=== PATIENT | male | born 1970 | race African-American/Black ===

== ENCOUNTER 2016-11-21 22:41 | Inpatient (IN) ==
[2016-11-22] MEDS ORDERED: CEFTAROLINE 600 MG in SODIUM CHLORIDE 0.9% 100 ML IV STA (00:33)
[2016-11-22] MEDS ORDERED: CEFTAROLINE 600 MG VIAL IV ONE (00:43)
[2016-11-22] MEDS ORDERED: SODIUM CHLORIDE 0.9% 100 ML IV ONE (00:44)
[2016-11-22 01:13] LABS: Basophils % 0.3 % (0.0-0.8); Eosinophils # 0.1 10*3/uL (0.0-0.87); Eosinophils % 0.9 % (0.00-10.9); Hemoglobin 10.6 GM/DL (14.0-18.0); Immature Granulocytes % 0.4 %; Immature Granulocytes Absolute 0.03 #; Lymphocytes # 1.9 10*3/uL (1.4-4.0); Lymphocytes % 24.2 % (21.2-54.2); Mean Corpuscular HGB Conc 33.1 GM/DL (32-36); Mean Corpuscular Hemoglobin 29 PG (27-34); Mean Corpuscular Volume 86.5 FL (87-102); Mean Platelet Volume 9.4 FL (9.6-12.0); Monocytes % 12.6 % (1.7-12.7); Neutrophils # 4.8 10*3/uL (1.4-7.4); Neutrophils % 61.6 % (38.7-73.9); Platelet Count 324 T/CUMM (130-400); Red Cell Distribution Width 14.7 % (9.3-17.3); White Blood Count 7.9 T/CUMM (4-12)
[2016-11-22 01:29] LABS: Alanine Aminotransferase 22 U/L (16-61); Albumin 2.8 G/DL (3.4-5.0); Alkaline Phosphatase 80 U/L (45-117); Aspartate Amino Transferase 23 U/L (0-37); Blood Urea Nitrogen 8 MG/DL (7-18); Calcium 8.9 MG/DL (8.5-10.1); Glucose 109 MG/DL (74-106); Magnesium 2.5 MG/DL (1.8-2.4); Potassium 3.8 MMOL/L (3.5-5.1); Sodium 136 MMOL/L (136-145); Total Protein 7.6 G/DL (6.4-8.3)
--- NOTE | 2016-11-22 02:01 | Emergency Department Note ---
ICallum Emily, am scribing for, and in the presence of, Jakob Redd MD 00: 30. Tramaine Timmons Charles R, MD, personally performed the services described in this documentation, ascribed by Leticia Nolen in my presence, and it is both accurate and complete . Arrival - Arrival Chief Complaint: Extremity Problem Stated Complaint: both feet are swollen ED Nursing Triage Note: Patient complains of swelling to bilateral feet. Patient states that he fell last Saturday and twisted his feet inside of the rubber boots that he was wearing and obtained blisters to feet. Further states that bisters bursted and feet began to swell. Large sores noted to bilatereal feet upon triage with non-pitting edema noted. Mode of Arrival: Wheelchair Limitations: No Limitations Source: Patient Time Seen by Provider: 11/22/16 00:18 - History of Present Illness HPI Narrative: Pt is a 46 y/o male who came to ED with c/o open wounds to bilateral lower extremities that started Saturday last week. Pt notes it started out as a couple of blisters noticed on Saturday, he popped them, and two days later they became bigger. Pt states now they feel tight, swollen, and are painful. Pt admits to smoking tobacco and ETOH usage but denies drug use. Pt denies DM or recent fevers. Onset (ago): week(s) Consistency: constant Severity: moderate Severity scale (1-10): 5 Quality: aching Allergies/Adverse Reactions: Allergies Allergy/AdvReac Type Severity Reaction Status Date / Time No Known Allergies Allergy Unverified 11/21/16 23:03 Home Medications: Home Medications Medication Instructions Recorded Confirmed Type No Known Home Medications [No 11/21/16 11/21/16 History Known Home Medications] Review of System - Review of System 12 point system: reviewed and no additional remarkable complaints except as stated - Review of System Constitutional: Absent: fever Respiratory: Absent: respiratory distress Cardiovascular: Absent: chest pain Gastrointestinal: Absent: abdominal pain, nausea, vomiting Musculoskeletal: Present: leg pain (several open wounds on bilateral lower legs that are painful, swollen and tight). Absent: arm pain Skin: Absent: rash Neurological: Absent: headache ( ) Medical,Surgical,& Family Hx - Family History Family History: noncontributory - Social History Smoking Status: Current every day smoker Frequency of Alcohol Use: Occasionally Type of Drug Use: Marijuana Marital Status: Single Lives With:: Alone Functional capacity: independent ambulation Exam Vital Signs: Vital Signs Temperature 98.5 F 11/21/16 23:56 Pulse Rate 105 H 11/21/16 23:56 Respiratory Rate 18 11/21/16 23:56 Blood Pressure 126/84 11/21/16 23:56 O2 Sat by Pulse Oximetry 100 11/21/16 23:04 - General General appearance: alert, in no apparent distress - Head Head exam: Present: atraumatic, normocephalic - Eye Eye exam: Present: PERRL, EOMI - ENT ENT exam: Present: mucous membranes moist. Absent: mucous membranes dry - Neck Neck exam: Present: full ROM, trachea midline - Chest Chest inspection: Present: symmetric chest wall rise - Respiratory Respiratory exam: Present: normal lung sounds bilaterally. Absent: respiratory distress - Cardiovascular Cardiovascular exam: Present: regular rate, normal rhythm, normal heart sounds - Extremities Exam Extremities exam: Present: full ROM, tenderness (multiple lesions to bilateral lower extremities that are non healing wounds with S-scars). Absent: pedal edema - Neurological Exam Neurological exam: Present: alert, oriented X3, CN II-XII intact. Absent: motor sensory deficit - Psychiatric Psychiatric exam: Present: normal affect, normal mood - Skin Skin exam: Present: warm, dry Course - Consultations Consultation #1: Dr. Corrigan will admit patient Time: 00:25 Results - Labs CBC & BMP: 11/22/16 00:32 11/22/16 Unknown Lab Results: I have reviewed the patients labs Labs: Laboratory Tests 11/22/16 11/22/16 00:32 Unknown WBC 7.9 RBC 3.70 L Hgb 10.6 L Hct 32.0 L MCV 86.5 L Plt Count 324 MPV 9.4 L [place] # (Auto) 1.0 H Sodium 136 Potassium 3.8 Chloride 100 Carbon Dioxide 30 Creatinine 1.10 GFR Calculation 92 Glucose 109 H Calculated Osmolality 270.0 L Magnesium 2.5 H AST 23 Albumin 2.8 L Globulin 4.8 H Albumin/Globulin Ratio 0.5 L Serum Alcohol < 15 L Disposition Clinical Impression: Cellulitis, Multiple nonhealing wounds bilateral low Case discussed with: patient, patient's family Disposition: Still a Patient Condition: Stable Time of Disposition: 02:01
[2016-11-22 02:14] LABS: Lymphocytes 34 % (20-55); Myelocytes 1 %; Segmented Neutrophils 54 % (50-85)
[2016-11-22 02:16] LABS: Platelet Estimate Normal; Total Cells Counted 100
[2016-11-22 02:23] LABS: Barbiturates Screen,Urine Negative (Negative); Benzodiazepines Screen,Urine Negative (Negative); Cannabinoid Screen,Urine Positive (Negative); Opiate Screen,Urine Negative (Negative); Phencyclidine Screen,Urine Negative (Negative)
[2016-11-22] MEDS ORDERED: ALBUTEROL/IPRATROPIUM 3 ML NEB RESP TX PRN (03:19)
[2016-11-22] MEDS ORDERED: ACETAMINOPHEN 325 MG TABLET PO PRN (03:19)
[2016-11-22] MEDS ORDERED: ONDANSETRON 4 MG/2 ML VIAL IV PRN (03:19)
[2016-11-22] MEDS: SODIUM CHLORIDE 0.9% 1,000 ML IV SCH ×2 (05:00→14:35)
[2016-11-22] MEDS: MORPHINE 2 MG/1 ML SYRINGE IV PRN ×3 (06:32→17:26)
[2016-11-22 08:00] LABS: Basophils % 0.2 % (0.0-0.8); Eosinophils # 0.1 10*3/uL (0.0-0.87); Eosinophils % 0.7 % (0.00-10.9); Hematocrit 30.2 VOL% (42.0-52.0); Hemoglobin 10.1 GM/DL (14.0-18.0); Immature Granulocytes % 0.5 %; Immature Granulocytes Absolute 0.04 #; Lymphocytes # 2.8 10*3/uL (1.4-4.0); Lymphocytes % 31.4 % (21.2-54.2); Mean Corpuscular HGB Conc 33.4 GM/DL (32-36); Mean Corpuscular Hemoglobin 29 PG (27-34); Mean Corpuscular Volume 86.5 FL (87-102); Mean Platelet Volume 9.5 FL (9.6-12.0); Monocytes # 1.1 10*3/uL (0.11-0.8); Monocytes % 12.8 % (1.7-12.7); Neutrophils # 4.8 10*3/uL (1.4-7.4); Neutrophils % 54.4 % (38.7-73.9); Platelet Count 349 T/CUMM (130-400); Red Blood Count 3.49 MC/CUMM (3.8-5.5); Red Cell Distribution Width 14.8 % (9.3-17.3); White Blood Count 8.8 T/CUMM (4-12)
[2016-11-22 08:29] LABS: Hypochromasia 1+; Lymphocytes 33 % (20-55); Segmented Neutrophils 56 % (50-85); Total Cells Counted 100
[2016-11-22 08:30] LABS: Microcytosis 1+; Platelet Estimate Normal
[2016-11-22 08:34] LABS: Albumin 2.8 G/DL (3.4-5.0); Bilirubin,Total 0.4 MG/DL (0.2-1.0); Calcium 8.8 MG/DL (8.5-10.1); Magnesium 2.4 MG/DL (1.8-2.4); Osmolality,Calculated 270.8 MOS/KG (273-304); Potassium 4.1 MMOL/L (3.5-5.1); Total Protein 7.4 G/DL (6.4-8.3)
[2016-11-22] MEDS: PANTOPRAZOLE 40 MG TABLET PO SCH (08:37)
--- NOTE | 2016-11-22 08:54 | General Surg History&Physical ---
Assessment and Plan - Time spent with patient Time spent with patient: Less than 30 minutes (1) Cellulitis Status: Acute Assessment and plan: He appears to have bilateral cellulitis and ulceration of both of his lower extremities and feet. These are exquisitely tender. He has palpable pulses and had no history of claudication or limitation to his activity prior to this happening. I do not think that this is vascular in origin. I think that these are secondarily infected blistered areas secondary to local trauma. It is unclear if these eschars need debridement at this point. I am going to treat him initially with antibiotics but if he is not improving we may need to debride these areas in the operating room Current Visit: Yes Qualifiers: Site of cellulitis of extremity: lower extremity Laterality: left History of Present Illness Chief complaint: Ulcers on legs and feet History of present illness: Mr. Velez is a 46 year old male Who states that 9 days ago he was wearing rubber boots all day in the rain and developed blisters on his legs and feet inside the rubber boots. He eventually popped all of the blisters and was left with large ulcerated areas on both of his feet and legs. He has not had fever or chills but has had increasing pain and swelling in both of his lower legs and feet over the last 3 days. He does not know if he has had fever or chills. It hurts more when he walks and feels better if his legs are elevated. Home Medications Medication Instructions Recorded Confirmed Type No Known Home Medications [No 11/21/16 11/21/16 History Known Home Medications] Allergies Allergy/AdvReac Type Severity Reaction Status Date / Time No Known Allergies Allergy Unverified 11/21/16 23:03 Medical,Surgical,& Family Hx - Medical History Medical History: noncontributory - Surgical History Surgical History: noncontributory - Family History Family History: Reports;: Family Diabetes (father), Family Hypertension (mother) - Social History Smoking Status: Current every day smoker Frequency of Alcohol Use: Occasionally Type of Drug Use: Marijuana Exam - Constitutional Vitals: Period Temp Pulse Resp BP Sys/Elliott Pulse Ox Last 24 Hr 98.4 F-98.6 F 76-105 18-20 115-126/71-84 98-100 General appearance: no acute distress - Head Head exam: Present: normocephalic - Eye Eye exam: Absent: scleral icterus - Neck Neck exam: Present: trachea midline. Absent: tenderness - Respiratory Respiratory exam: Present: clear to auscultation bilaterally. Absent: accessory muscle use - Cardiovascular Cardiovascular exam: Present: RRR - GI/Abdominal GI/Abdominal exam: Present: soft. Absent: distended, guarding, tenderness, rebound - Neurological Exam Neurological exam: Present: alert, oriented X3. Absent: motor sensory deficit Speech: Present: normal - Skin Skin exam: Present: normal color - Constitutional Constitutional: Present: anorexia, fever(s) (Subjective). Absent: chills - Cardiovascular Cardiovascular: Absent: chest pain at rest, chest pain with activity - Respiratory Respiratory: Absent: cough, dyspnea, hemoptysis, dyspnea on exertion - Gastrointestinal Gastrointestinal: Absent: abdominal pain, hematemesis, hematochezia, nausea, vomiting, jaundice - Genitourinary Genitourinary: Absent: hematuria - Neurological Neurological: Absent: focal weakness, syncope - Endocrine Endocrine: Absent: polyuria Hematologic/Lymphatic: Absent: easy bleeding, easy bruising Quality Measures - VTE Contraindication to Mechanical VTE Prophylaxis: Trauma to Legs Results - Labs CBC & BMP: 11/22/16 07:32 11/22/16 Unknown Lab Results: I have reviewed the past 24 hour labs
[2016-11-22] MEDS: AMPICILLIN/SULBACTAM 3,000 MG in SODIUM CHLORIDE 0.9% 100 ML IV SCH ×3 (10:33→20:37)
[2016-11-22] MEDS: ENOXAPARIN 40 MG/0.4 ML SYRINGE SUBCUT SCH (11:56)
[2016-11-22] MEDS ORDERED: CEFTAROLINE 600 MG in SODIUM CHLORIDE 0.9% 100 ML IV SCH (12:00)
[2016-11-23] MEDS: MORPHINE 2 MG/1 ML SYRINGE IV PRN ×2 (00:18→10:22)
[2016-11-23] MEDS: SODIUM CHLORIDE 0.9% 1,000 ML IV SCH (03:00)
[2016-11-23] MEDS: AMPICILLIN/SULBACTAM 3,000 MG in SODIUM CHLORIDE 0.9% 100 ML IV SCH ×2 (03:00→10:16)
--- NOTE | 2016-11-23 08:35 | General Surgery Progress Note ---
Assessment and Plan (1) Cellulitis Status: Acute Assessment and plan: He appears to have bilateral cellulitis and ulceration of both of his lower extremities and feet. These are exquisitely tender. He has palpable pulses and had no history of claudication or limitation to his activity prior to this happening. I do not think that this is vascular in origin. I think that these are secondarily infected blistered areas secondary to local trauma. It is unclear if these eschars need debridement at this point. I am going to treat him initially with antibiotics but if he is not improving we may need to debride these areas in the operating room 11/23: This appears resolved. I think that he can be discharged home on antibiotics by mouth. I do not think that these eschars need debridement. I can follow him up in the office in 1 week Current Visit: Yes Qualifiers: Site of cellulitis of extremity: lower extremity Laterality: left Subjective Patient reports: Present: feels better, pain is less. Absent: fever Exam - Constitutional Vitals: Period Temp Pulse Resp BP Sys/Elliott Pulse Ox Last 24 Hr 97.7 F-98.3 F 74-99 18-20 111-133/68-86 96-99 General appearance: no acute distress - Respiratory Respiratory exam: Absent: accessory muscle use - Extremities Exam Extremities exam: Present: other (The tenderness and faint erythema are resolved the eschars are all dry). Absent: edema Results - Labs CBC & BMP: 11/22/16 07:32 11/22/16 Unknown Lab Results: I have reviewed the past 24 hour labs Quality Measures - VTE Contraindication to Mechanical VTE Prophylaxis: Trauma to Legs Specialty Discharge - Follow Up or Referrals Follow up with: Kael Corrigan III., MD [Physician] -
[2016-11-23] MEDS: PANTOPRAZOLE 40 MG TABLET PO SCH (10:14)
--- NOTE | 2016-11-23 11:20 | Discharge Summary ---
Hospital Course - Hospital Course Hospital Course: Patient is a 46-year-old gentleman admitted for cellulitis associated with wounds of bilateral lower extremities. The patient was treated with IV antibiotics to which the cellulitis responded well. No cultures were obtained as his wounds were not draining. No abscess formation noted or surgical indications identified. The patient had significant improvement in pain and cellulitis was ultimately discharged home in good condition with follow-up in the wound care center as well as with Dr. Corrigan. Wound care instructions to paint daily with Betadine in the interim were provided. No complications to note. - Time spent with patient Time with patient DS: Less than 30 minutes Diagnosis - Discharge Diagnosis (1) Substance abuse Status: Acute (2) Cellulitis Status: Acute Specialty Discharge - Follow Up or Referrals Follow up with: Kael Corrigan III., MD [Physician] - 12/04/16 1:00 pm Discharge Plan - Discharge Data Disposition: Disch To Home/Self Care Condition at Discharge: Stable Discharge Diet: advance to your usual diet Activity: other (Elevate bilateral lower extremities) Hygiene: may shower (Do not soak or submerge wounds.) Wound / Dressing Care Instructions: Patient may shower. Do not soak or submerge wounds. Clean daily with Betadine. Follow-up in wound care clinic as scheduled. Follow with Dr. Corrigan as scheduled. - Discharge Medications New Clindamycin Cap [Cleocin Cap] 300 mg PO Q8HR #24 capsule traMADol TAB [Ultram] 50 mg PO Q6H PRN #20 tablet PRN Reason: Pain - Follow Up or Referral Follow Up: Kael Corrigan III., MD [Physician] - 12/04/16 1:00 pm - Forms/Instructions Instructions: Cellulitis (DC), Cannabis Abuse (DC), Cocaine Abuse (DC) Additional Discharge Instructions: F/u wound care clinic as scheduled Exam - Constitutional Vitals: Period Temp Pulse Resp BP Sys/Elliott Pulse Ox Last 24 Hr 97.7 F-98.3 F 74-99 18-20 111-133/68-86 96-99 General appearance: no acute distress - Head Head exam: Present: atraumatic - Respiratory Respiratory exam: Present: clear to auscultation bilaterally - Cardiovascular Cardiovascular exam: Present: regular rate and rhythm - GI/Abdominal GI/Abdominal exam: Present: normal bowel sounds, soft. Absent: distended, tenderness - Extremities Exam Extremities exam: Present: other (Dry wounds of bilateral pretibial regions as well as on the dorsum of bilateral feet and medial aspect of the first MTP of the left foot with decreased cellulitis. No area of fluctuance or induration is noted. No purulence expressible. Nontender to palpation with no significant edema.). Absent: calf tenderness, edema - Neurological Exam Neurological exam: Present: alert, oriented X3 - Psychiatric Psychiatric exam: Present: normal affect, normal mood Discharge Results Procedures and tests throughout hospitalization: Pending Orders 11/22/16 01:20 Blood Culture Stat Labs on day of discharge: Preliminary micro results at discharge 11/22/16 01:20 Blood Culture - Preliminary Blood No growth at 1 day 11/22/16 01:13 Blood Culture - Preliminary Blood No growth at 1 day DS: Provider Date of admission: 11/22/16 02:01 Primary care physician: . No PCP Attending physician on admission: Kael Corrigan III., Consults: 11/22/16 03:19 Consult to Case Mgmt/Social Srvs [CONS] Routine Reason for Case Mgmt/Social Srvs: Rehab Other Consult Comment: Home situation Consult to Wound Care - [place] [CONS] Routine Reason for Wound Care: Wound Care Management 11/23/16 11:16 Consult to Case Mgmt/Social Srvs [CONS] Routine Reason for Case Mgmt/Social Srvs: Other Consult Comment: follow up wound care clinic Discharging clinician: Tami Marie PA-C
[2016-11-23 11:36] VITALS: BP 118/74
[2016-11-23] MEDS: ENOXAPARIN 40 MG/0.4 ML SYRINGE SUBCUT SCH (13:39)
== END 2016-11-23 13:40 | disposition home or self-care (01) | DRG 603 ==
LOC: N.ED 22:41 → N.EDINP 11-22 02:01 → N.3E 11-22 02:46
PROVIDERS: ADMIT Surgery; ATTEND Surgery